=== PATIENT | female | born 1975 | race Caucasian/White ===

== ENCOUNTER 2016-08-11 | Inpatient (IN) | payer MEDICARE ==
--- NOTE | ~2016-08-11 | PA ---
Unit #: [id number] #: [id number] Patient: STEVIE JORDAN [id number] [facility] [address] [place] [address] [id number] I MR#: [id number] NAME: STEVIE JORDAN ROOM: P177 Age: 40 Sex: F Admission Date: 08/11/2016 : 1975 Date of Assessment: Attending Physician: Buck Breen M.D. Admitting Physician: Buck Breen M.D. PSYCHIATRIC ASSESSMENT INFORMANTS The patient's reliability, fair; chart reliability, good. CHIEF COMPLAINT Depression and medication abuse. HISTORY OF PRESENT ILLNESS Ms. Almanza is a 40-year-old white female, presented due to withdrawal from benzodiazepine. The patient reported that she was having blurriness of vision, muscle aches, lack of sleep, increased anxiety, feeling sad, depressed, mood lability. The patient reported that she was stopped taking her medication cold turkey about 2 weeks ago. The patient reported that she used cocaine and alcohol to self medicate. The patient has a history of suicidal ideation with no attempts. Denied any current suicidal ideation, but having problem with mood lability. The patient reported needing help with her medication. The patient has a history of PTSD, history of multiple suicide attempts, suicidal ideation and treatment. PAST PSYCHIATRIC HISTORY Remarkable for history of inpatient treatment at [facility], in 2014 inpatient as teen in [place], [facility], outpatient followup with Dr. Lance. FAMILY HISTORY AND SOCIAL HISTORY The patient reports that she has a poor support system. No history of abuse. Reported history of mental illness in both sides of the family and chemical dependency. MEDICAL HISTORY Unremarkable for any chronic medical condition. Musculoskeletal; muscle strength and tone, no atrophy or abnormal movement. Gait normal. MEDICATION HISTORY The patient reports that she is prescribed Phenergan, Latuda, Ambien, and Adderall. ALLERGIES No known drug allergies. SUBSTANCE ABUSE HISTORY The patient reported tobacco use, age of onset 18; alcohol, age of onset 14; history of marijuana abuse, age of onset 14; crack cocaine, age of Unit #: [id number] #: [id number] Patient: STEVIE JORDAN onset 28; benzodiazepine in adult age in the last 3 years. The patient denied any history of blackout. No history of IV drug use. No history of any HIV or hepatitis, but reported withdrawal symptoms such as depressed mood, irritability, poor appetite, restlessness, sleep problems, tremor, and pleasant dreams. REVIEW OF SYSTEMS HEENT: Eyes, clear. Ears, nose, mouth, and throat; clear. CARDIOVASCULAR: Unremarkable. RESPIRATORY: Unremarkable. GI: Unremarkable. : Unremarkable. SKIN: Unremarkable. LYMPH NODE: Unremarkable. NEUROLOGIC: Unremarkable. ENDOCRINE: Unremarkable. HEMATOLOGIC: Unremarkable. ALLERGIC/IMMUNOLOGIC: Unremarkable. MUSCULOSKELETAL: Muscle strength and tone, no atrophy or abnormal movement. Gait normal. MENTAL STATUS EXAMINATION CONSTITUTIONAL: Measurement of vital signs; temperature 98.9, pulse 112, respiratory rate 18, blood pressure 135/65. Height 5 feet 5 inches. Weight 260 pounds. GENERAL APPEARANCE: The patient dressed casually. No facial deformity noted. MUSCULOSKELETAL: Please see above. PSYCHIATRIC EXAMINATION Description of speech; regular rate, normal volume, normal articulation, coherent. Description of thought process, goal directed. Description of association, intact. Description of abnormal psychotic thinking; the patient denied any hallucination or delusions, but mood lability, anxious. Denied any suicidal or homicidal ideation or any psychotic symptom, but somewhat guarded and paranoid. Description of the patient's judgment, concerning everyday activity, poor. Social situation, poor. Concerning psychiatric condition, poor. Complete mental status examination; oriented in time, place, and person. Attention span and concentration, fair. Language, intact. Fund of knowledge, fair. Vocabulary, fair. Mood and affect, sad and dysphoric. Insight and judgment, fair to slightly impaired. ASSETS AND LIABILITIES Assets, the patient is articulate and able to take care of her ADL. Liability, history of abuse of medication, depression. 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 Secondary diagnosis: Deferred. Medical diagnosis: Hypertension, obesity. Unit #: [id number] #: [id number] Patient: STEVIE JORDAN Stressors: Psychosocial stressors. PSYCHIATRIC PLAN 1. Advised to admit the patient on the inpatient unit. Provide safe, supportive, and structured environment. 2. Ordered labs; CBC, CMP, UA, and UDS. 3. Precaution for self-harm, detox monitoring, detox protocol. The patient to resume her home medication Latuda only, Cymbalta 60 mg daily, Latuda 40 mg daily, Catapres 0.1 mg q.4 hours p.r.n., and Vistaril 50 mg t.i.d. Advised to discontinue Adderall and Xanax. The patient to attend all the programing. TREATMENT GOAL To attain euthymic mood, gain insight into her problem, and learn coping skills. DISCHARGE PLAN Plan to stabilize the patient and consider followup in outpatient program. ESTIMATED LENGTH OF STAY 7 to 10 days. Dictated by... Catalino Sinclair/carmen TD: 08/12/2016 22:39 JOB #: [id number] PSYCHIATRIC ASSESSMENT Page 1 of 1 X Buck Breen MD X PSYCHIATRIC ASSESSMENT
--- NOTE | ~2016-08-11 | PN ---
Unit #: [id number] #: [id number] Patient: STEVIE JORDAN [id number] [facility] [address] [place] [address] [id number] I MR#: [id number] NAME: STEVIE JORDAN ROOM: [facility] Age: 40 Sex: F Admission Date: 08/11/2016 : 1975 Attending Physician: Buck Breen M.D. Admitting Physician: Buck Breen M.D. Primary Care Physician: [facility] PROGRESS NOTES REVISED REPORT DATE 08/13/2016 DISCUSSION Ms. Almanza is a 40-year-old female seen on 08/13/2016. The patient interviewed, chart reviewed. Obtained information from nursing staff. The patient reports feeling better decreased in anxiety, depression tolerating medication fairly well making progress still sad, depressed, withdrawn isolative. Complete review of systems unremarkable. MENTAL STATUS EXAMINATION General appearance, the patient dressed casually. Attention span and concentration fair. Oriented to time, place and person. Mood and affect sad, dysphoric. Speech monotone. Thought process concrete. The patient denied any thoughts of harming self or others but withdrawn, isolative, flat affect, guarded. Recent and remote memory poor. Insight and judgement poor. DIAGNOSES Polysubstance abuse Mood disorder NOS ASSESSMENT/PLAN Advise to continue with current medication and therapeutic protocol. If needed consider further adjustment of medication. Dictated by... Catalino Sinclair/paulina TD: 08/15/2016 05:12 JOB #: [id number] CC: Umm/invision Please Delete Unit #: [id number] #: [id number] Patient: STEVIE JORDAN [facility] PROGRESS NOTES Page 1 of 1 X Buck Breen MD X PROGRESS NOTE
--- NOTE | ~2016-08-11 | CO ---
Unit #: [id number] #: [id number] Patient: CATHIE JORDAN [id number] [place] [address] [id number] I MR#: [id number] NAME: CATHIE JORDAN ROOM: [facility] Age: 40 Sex: F Admission Date: 08/11/2016 : 1975 Attending Physician: Buck Breen M.D. Primary Care Physician: [facility] Consultation Date: 08/11/2016 CONSULTATION REPORT SUBJECTIVE Cathie is a 40-year-old who has complained of an irritating itchy vaginal discharge over the past 48 hours. She was given a Diflucan 150 mg x1 dose. She can follow up with PCP. Dictated by... Wendi Pacheco P.A.-C. for Catalino Nuñez/carmen TD: 08/23/2016 19:29 JOB #: [id number] CONSULTATION REPORT Page 1 of 1 X Wendi Pacheco CONSULTATION REPORT
--- NOTE | ~2016-08-11 | PN ---
Unit #: [id number] #: [id number] Patient: STEVIE JORDAN [id number] [facility] [address] [place] [address] [id number] I MR#: [id number] NAME: STEVIE JORDAN ROOM: [facility] Age: 40 Sex: F Admission Date: 08/11/2016 : 1975 Attending Physician: Buck Breen M.D. Admitting Physician: Buck Breen M.D. Primary Care Physician: [facility] PROGRESS NOTES DATE 08/15/2016 DISCUSSION Ms. Almanza is a 40-year-old female. Patient interviewed. Chart reviewed. Obtained information from nursing staff. Patient was pleasant, cooperative. Reports making progress. Able to sleep good. Patient denied any thoughts of harming self or others but isolative, guarded, flat affect. Still having anxiety, mood lability. Complete review of system unremarkable. MENTAL STATUS EXAMINATION General appearance, hygiene and grooming fair. Attention span, concentration fair. Oriented in place and person. Mood and affect labile, sad, dysphoric, withdrawn, isolative. Recent and remote memory poor. Insight and judgement poor. DIAGNOSIS Major depressive disorder, recurrent. ASSESSMENT/PLAN Advised to continue with current medication and therapeutic protocol. If needed, consider further adjustment of medication. Dictated by... Catalino Sinclair/jamar TD: 08/16/2016 20:15 JOB #: [id number] Unit #: [id number] #: [id number] Patient: STEVIE JORDAN PROGRESS NOTES Page 1 of 1 X Buck Breen MD X PROGRESS NOTE
--- NOTE | ~2016-08-11 | PN ---
Unit #: [id number] #: [id number] Patient: STEVIE JORDAN [id number] [facility] [address] [place] [address] [id number] I MR#: [id number] NAME: STEVIE JORDAN ROOM: [facility] Age: 40 Sex: F Admission Date: 08/11/2016 : 1975 Attending Physician: Buck Breen M.D. Admitting Physician: Buck Breen M.D. Primary Care Physician: [facility] PROGRESS NOTES DATE OF SERVICE 08/16/16 DISCUSSION Ms. Almanza is a 40-year-old female seen on 08/16/16. Patient interviewed, chart reviewed. I obtained information from nursing staff. Patient continues to report feeling sad, depressed, anxious, but reports making progress. Denied any suicidal ideation, still having problem with anxiety, still seclusive, isolative. Flat affect, guarded and tolerating medication fairly well. COMPLETE REVIEW OF SYSTEMS Unremarkable. MENTAL STATUS EXAMINATION GENERAL APPEARANCE: Patient dressed casually. ATTENTION SPAN AND CONCENTRATION: Fair. Oriented in place and person. MOOD AND AFFECT: Sad, dysphoric. SPEECH: Regular rate. THOUGHT PROCESS: Goal directed. Patient denied any thoughts of harming self or others. RECENT AND REMOTE MEMORY: Poor. INSIGHT AND JUDGMENT: Poor. DIAGNOSIS Major depressive disorder, recurrent, severe ASSESSMENT/PLAN Advised to continue with current medication and therapeutic protocol. If needed, consider further adjustment in medication. We will continue to evaluate. Dictated by... Catalino Sinclair/kendal TD: 08/17/2016 23:02 JOB #: [id number] Unit #: [id number] #: [id number] Patient: STEVIE JORDAN PROGRESS NOTES Page 1 of 1 X Buck Breen MD PROGRESS NOTE
--- NOTE | ~2016-08-11 | PN ---
Unit #: [id number] #: [id number] Patient: STEVIE JORDAN [id number] [facility] [address] [place] [address] [id number] I MR#: [id number] NAME: STEVIE JORDAN ROOM: [facility] Age: 40 Sex: F Admission Date: 08/11/2016 : 1975 Attending Physician: Buck Breen M.D. Admitting Physician: Buck Breen M.D. Primary Care Physician: [facility] PROGRESS NOTES DATE 08/12/2016 DISCUSSION Ms. Almanza is a 40-year-old female. The patient interviewed, chart reviewed. Obtained information from nursing staff. The patient was seclusive, isolative, flat affect, sad, dysphoric mood. The patient denied any thoughts of harming self or others but still feeling very anxious, nervous. Complete review of systems unremarkable. MENTAL STATUS EXAMINATION General appearance, the patient dressed casually. The patient's vital signs stable 98.9, 112, 137/65. The patient sad, dysphoric. Complete review of systems unremarkable. Mental status examination general appearance the patient dressed casually. Attention span and concentration fair. Oriented to place and person. Mood and affect labile. Speech monotone. Thought process concrete. The patient denied any thoughts of harming self or others. Recent and remote memory poor. Insight and judgement poor. DIAGNOSES 1. Sedative hypnotic use disorder severe 2. Mood disorder NOS ASSESSMENT/PLAN Advise to continue with current medication and therapeutic protocol. If needed consider further adjustment of medication. Dictated by... Catalino Sinclair/paulina TD: 08/14/2016 21:39 JOB #: [id number] Unit #: [id number] #: [id number] [facility] PRO[facility] Page 1 of 1 X Buck Breen MD PROGRESS NOTE
--- NOTE | ~2016-08-11 | PN ---
Unit #: [id number] #: [id number] Patient: STEVIE JORDAN [id number] [facility] [address] [place] [address] [id number] I MR#: [id number] NAME: STEVIE JORDAN ROOM: [facility] Age: 40 Sex: F Admission Date: 08/11/2016 : 1975 Attending Physician: Buck Breen M.D. Admitting Physician: Buck Breen M.D. Primary Care Physician: [facility] PROGRESS NOTES DATE OF SERVICE 08/17/16 DISCUSSION Ms. Almanza is a 40-year-old female seen on 08/17/16. Patient interviewed, chart reviewed, I obtained information from nursing staff. Patient compliant, cooperative during interview. Mood labile, anxious, nervous. Reports making progress. Denies any thoughts of harming self or others. Patient reports no side effect from medication. COMPLETE REVIEW OF SYSTEMS Unremarkable. MENTAL STATUS EXAMINATION GENERAL APPEARANCE: Patient dressed casually. ATTENTION SPAN AND CONCENTRATION: Fair. Oriented in place and person. MOOD AND AFFECT: Labile. SPEECH: Regular rate. THOUGHT PROCESS: Goal directed. Patient denied any thoughts of harming self or others, but somewhat anxious, isolative. RECENT AND REMOTE MEMORY: Poor. INSIGHT AND JUDGMENT: Poor. DIAGNOSIS Major depressive disorder, recurrent, moderate to severe ASSESSMENT/PLAN Advised to continue with current medication and therapeutic protocol. If needed, consider further adjustment in medication. Dictated by... Catalino Sinclair/kendal TD: 08/18/2016 03:09 JOB #: [id number] Unit #: [id number] #: [id number] Patient: STEVIE JORDAN PROGRESS NOTES Page 1 of 1 X Buck Breen MD PROGRESS NOTE
--- NOTE | ~2016-08-11 | PN ---
Unit #: [id number] #: [id number] Patient: STEVIE JORDAN [id number] [facility] [address] [place] [address] [id number] I MR#: [id number] NAME: STEVIE JORDAN ROOM: [facility] Age: 40 Sex: F Admission Date: 08/11/2016 : 1975 Attending Physician: Buck Breen M.D. Admitting Physician: Buck Breen M.D. Primary Care Physician: [facility] PROGRESS NOTES DATE 08/14/2016 DISCUSSION Ms. Almanza is a 40-year-old female. The patient interviewed, chart reviewed. Obtained information from nursing staff. The patient withdrawn, isolative, flat affect, sad, dysphoric mood but reports making progress. Still having trouble sleeping. The patient denied any side effects from medication. Complete review of systems unremarkable. MENTAL STATUS EXAMINATION General appearance, the patient dressed casually. Attention span and concentration (1)____. Oriented to place and person. Mood and affect sad, dysphoric. Speech monotone. Thought process concrete. The patient denied any thoughts of harming self or others. Recent and remote memory poor. Insight and judgement poor. DIAGNOSES Mood disorder NOS Anxiety disorder NOS ASSESSMENT/PLAN Recommending at this time to continue with current medication with a plan to add Neurontin 300 mg three times a day and doxepin 100 mg at bedtime for sleep. We will closely monitor. The patient's vital signs 98.4, 118, 20, 118/81. Dictated by... Catalino Sinclair/paulina TD: 08/15/2016 21:19 JOB #: [id number] Unit #: [id number] #: [id number] [facility] PROGR[facility] NOT[facility] Page 1 of 1 X Buck Breen MD PROGRESS NOTE
--- NOTE | ~2016-08-11 | HP ---
Unit #: [id number] #: [id number] Patient: CATHIE JORDAN [id number] [place] [address] [id number] I MR#: [id number] NAME: CATHIE JORDAN ROOM: P177 Age: 40 Sex: F Admission Date: 08/11/2016 : 1975 Attending Physician: Buck Breen M.D. Admitting Physician: Buck Breen M.D. Primary Care Physician: [facility] HISTORY AND PHYSICAL HISTORY OF PRESENT ILLNESS Cathie is a 40 year old admitted to [facility] because of her abuse of benzodiazepines. PAST MEDICAL HISTORY 1. Long history of benzodiazepine use/abuse. 2. History of withdrawal seizures. 3. High blood pressure. 4. Morbid obesity. PAST SURGICAL HISTORY Nothing reported. ALLERGIES Sulfa, Geodon. SOCIAL HISTORY Smokes 1 pack per day. Drinks alcohol on occasion. Admits to using cocaine and abuses benzodiazepines. FAMILY HISTORY Medically noncontributory. REVIEW OF SYSTEMS CONSTITUTIONAL: No fever or chills. HEENT: Denies any sore throat, ear pain or runny nose. CARDIOVASCULAR: Denies chest pain, irregular heart rhythm or palpitations. CHEST: Denies shortness of breath or cough. No hemoptysis. GASTROINTESTINAL: Denies nausea, vomiting, diarrhea or chronic constipation. ENDOCRINE: Denies history of increased thirst or urination. No recent significant weight loss or gain. GENITOURINARY: Denies dysuria, frequency, or hematuria. SKIN: Denies any rashes. HEMATOLOGIC: Denies history of increased bleeding or bruising. MUSCULOSKELETAL: Denies any hot, swollen joints. No generalized muscle pain. NEUROLOGIC: Denies problems with vision or speech. No frequent, severe headaches. No numbness, tingling or weakness in any extremities. Denies loss of bladder or bowel control. CURRENT MEDICATIONS 1. Detox protocol. Unit #: [id number] #: [id number] Patient: CATHIE JORDAN 2. Cymbalta 60 mg daily. 3. Latuda 40 mg daily. PHYSICAL EXAMINATION GENERAL: Alert, well-nourished, in no apparent distress. VITAL SIGNS: Blood pressure 142/100, heart rate 100, respirations 16, temperature 100.6. WEIGHT: 260. HEIGHT: 5 feet 5 inches. SKIN: Warm and dry without rash or lesion. HEENT: Normocephalic. TMs not viewed. Oral and nasal passages clear. Conjunctivae clear. PERRLA. EOMs intact. NECK: Supple without lymphadenopathy or thyromegaly. HEART: Regular rate and rhythm without murmur. LUNGS: Clear. ABDOMEN: Soft, nontender. : Not done. EXTREMITIES: No evidence of cyanosis, clubbing or edema. Moves all without focal deficit. NEUROLOGICAL: Grossly within normal limits. Cranial Nerves: II: Visual martino are intact. III, IV AND : Extraocular movements are intact. Pupils are equal, round and reactive to light. V: Facial sensation is grossly normal. VII: Facial movements and expression are normal. VIII: Auditory acuity grossly intact. IX, X: Uvula is midline. Phonation is normal. XI: Patient shrugs shoulders and turns head normally. XII: Tongue protrudes in the midline. Sensory and Motor Function: Sensory and motor sensation is grossly normal. Motor: moves all extremities well. Coordination: Gait is normal. Deep Tendon Reflexes: Intact. IMPRESSION Psychiatric admission. RECOMMENDATIONS PSYCHIATRIC: Per psychiatrist. MEDICAL: See no contraindications to participate in facility's activities. MEDICAL PROGNOSIS Good. MEDICAL CONDITION Stable. Dictated by... Wendi Pacheco PFilibertoAFiliberto-Juan. for Catalino Nuñez/jamar TD: 08/11/2016 22:04 JOB #: [id number] Unit #: [id number] #: [id number] Patient: CATHIE JORDAN HISTORY AND PHYSICAL Page 1 of 1 X Wendi Pacheco HISTORY AND PHYSICAL
--- NOTE | ~2016-08-11 | DS ---
Unit #: [id number] #: [id number] Patient: STEVIE JORDAN [id number] [place] [address] [id number] I MR#: [id number] NAME: STEVIE JORDAN ROOM: P177 Age: 40 Sex: F Admission Date: 08/11/2016 : 1975 Discharge Date: 08/18/2016 Attending Physician: Buck Breen M.D. Primary Care Physician: [facility] DISCHARGE SUMMARY REASON FOR ADMISSION Depression and anxiety. DIAGNOSTIC STUDIES LABORATORY RESULTS: Urine drug screen positive for benzos. HOSPITAL COURSE The patient was admitted to the inpatient unit on 08/11/2016. The patient was treated on the inpatient unit with detox protocol, expressive therapy, medication management, psychotherapy, psychoeducation, and structured milieu. The patient responsive to the treatment and showed improvement in her mood and anxiety. The patient was concerned about withdrawal from benzodiazepine. The patient was responsive to treatment. Subsequently, the patient was discharged with a plan to follow up in [facility] level of care. DISCHARGE MEDICATIONS Cymbalta 60 mg once daily for depression, Vistaril 50 mg t.i.d. for anxiety, Latuda 40 mg daily for depression and mood stabilization, Sinequan 100 mg at bedtime for sleep, and Neurontin 300 mg t.i.d. for anxiety and mood stabilization. DISCHARGE DIAGNOSES Psychiatric: Sedative hypnotic use disorder, severe, F13.20; alcohol use disorder, F10.20; history of cocaine use disorder, moderate, F14.20; major depressive disorder, recurrent, severe, F33.2; rule out bipolar mood disorder; and posttraumatic stress disorder, chronic. Secondary diagnosis: Deferred. Medical diagnoses: Hypertension and obesity. Stressors: Psychosocial stressors. DISCHARGE INSTRUCTIONS The patient to follow up in outpatient clinic as per executive secretary social welfare. CONDITION ON DISCHARGE The patient was pleasant and cooperative. Denied any psychotic symptom or any suicidal ideation. PROGNOSIS Guarded. Unit #: [id number] #: [id number] Patient: STEVIE JORDAN DIET AND ACTIVITY As tolerated. Dictated by... Catalino Sinclair/carmen TD: 08/18/2016 18:22 JOB #: [id number] DISCHARGE SUMMARY Page 1 of 1 X Buck Breen MD DISCHARGE SUMMARY
[2016-08-12 11:56] LABS: BASOPHIL# 0.1 X10e3 (0-0.3); EOSINOPHIL# 0.2 X10e3 (0-0.7); EOSINOPHIL% 2.4 % (0.0-7.0); HEMATOCRIT 42.4 % (35.0-45.0); HEMOGLOBIN 13.7 gm/dL (12.0-16.0); LYMPHOCYTE# 2.9 X10e3 (1.0-3.5); LYMPHOCYTE% 32.4 % (17.0-45.0); MEAN CELL VOLUME 91.9 FL (83-96); MEAN CORPUSCULAR HEMOGLOBIN 29.8 PG (28-34); MEAN CORPUSCULAR HGB CONC 32.4 g/dL (30-36); MEAN PLATELET VOLUME 8.8 FL (6.5-11.5); MONOCYTE% 11.7 % (3.0-12.0); NEUTROPHIL# 4.7 X10e3 (1.5-7.1); NEUTROPHIL% 52.5 % (40-75); PLATELET COUNT 252 X10e3 (140-420); RED BLOOD COUNT 4.61 X10e (3.90-5.30); RED CELL DISTRIBUTION WIDTH 13.6 % (11.0-15.5); WHITE BLOOD COUNT 8.9 X10e3 (4.0-10.5)
[2016-08-12 11:59] LABS: DIFF IND NO
[2016-08-12 12:25] LABS: ALBUMIN SERUM 3.4 g/dL (3.5-5.0); BILIRUBIN,TOTAL 0.2 mg/dL (0.2-2.0); BUN/CREATININE RATIO 11.25; CALCIUM SERUM 8.7 mg/dL (8.4-10.2); CREATININE SERUM 0.8 mg/dL (0.6-1.4); GLOM FILT RATE Estimated 92.3 mL/min (>60); POTASSIUM 4.1 mmol/L (3.5-5.1); PROTEIN TOTAL SERUM 6.2 g/dL (6.0-8.3)
[2016-08-12 13:53] LABS: URINE SOURCE CLEAN CATCH
[2016-08-12 14:08] LABS: URINE APPEARANCE CLEAR; URINE BILIRUBIN NEG (NEG); URINE BLOOD NEG (NEG); URINE COLOR YELLOW; URINE GLUCOSE NEG (NEG); URINE KETONE NEG (NEG); URINE LEUKOCYTE ESTERASE 1+ (NEG); URINE NITRATE NEG (NEG); URINE PH 7.5 (5-8); URINE PROTEIN NEG (NEG); URINE SPECIFIC GRAVITY 1.011 (1.003-1.035); URINE UROBILINOGEN 0.2 MG/DL (NEG)
[2016-08-12 14:12] LABS: U HYALINE CASTS AUWI 0-2 /[LPF]; URBCS1 AUWI 0-2 /[HPF] (0-2); URINE BACTERIA AUWI NEG (NEGATIVE); URINE SQUAMOUS EPITHELIAL CELL FEW /[HPF]
[2016-08-12 14:24] LABS: AMPHETAMINE NEG (NEG); BARBITURATES NEG (NEG); BENZODIAZEPINES POS (NEG); COCAINE NEG (NEG); MARIJUANA NEG (NEG); OPIATES NEG (NEG); TRICYCLIC ANTIDEPRESSANTS NEG (NEG); U METHADONE NEG (NEG)
== END 2016-08-18 11:20 | disposition home or self-care (01) | DRG 897 ==
LOC: P1E 06:27
PROVIDERS: Psychiatry & Neurology Psychiatry
PROC: HZ2ZZZZ Detoxification Services for Substance Abuse Treatment (ICD-10-PCS; principal; 2016-08-11)
DX: F13.20 Sedative, hypnotic or anxiolytic dependence, uncomplicated (principal); F33.2 Major depressive disorder, recurrent severe without psychotic features; F43.12 Post-traumatic stress disorder, chronic; I10 Essential (primary) hypertension; E66.01 Morbid (severe) obesity due to excess calories; Z88.8 Allergy status to other drugs, medicaments and biological substances; F17.210 Nicotine dependence, cigarettes, uncomplicated
CPT/HCPCS: 80053; 80307; 81003; 82947; 83036; 84703; 85025; 86592